=== PATIENT | female | born 1960 | race Caucasian/White ===

== ENCOUNTER 2023-03-15 05:30 | Day surgery (SDC) | payer OTHER ==
[~2023-03-15 05:30] MED LIST: LOSARTAN-HCTZ1 EACH PO; PROTONIX40 M1 PO; SYNTHROID50 MCG PO; TRICOR145 MG PO; ZANTAC300 MG PO
[2023-03-15] MEDS ORDERED: IBU600 MG PO (09:27)
== END 2023-03-15 12:50 | disposition home or self-care (01) ==
LOC: CIR.AMB 05:30
PROVIDERS: ATTEND Obstetrics & Gynecology Gynecology
DX: N84.0 Polyp of corpus uteri (principal); I10 Essential (primary) hypertension; Z20.822 Contact with and (suspected) exposure to COVID-19